=== PATIENT | female | born 1940 | race Caucasian/White ===

== ENCOUNTER 2019-02-06 15:32 | Emergency (ER) | payer MEDICARE, OTHER ==
[~2019-02-06] VITALS: Wt 66.8 kg
--- NOTE | 2019-02-06 22:19 | ERD ---
ER Documentation Chief Complaint Chief Complaint BILATERAL LEG SWELLING X 1 WEEK. HPI 78-year-old female presents to the emergency room complaining of bilateral lower extremity swelling for proximately 1 week. She has a remote history of this in the past but no history of heart failure. No chest pain or shortness of breath or dyspnea on exertion. No history of renal failure. Patient does not currently take a diuretic. She denies any calf swelling or pain, unilateral swelling or history of DVT. ROS All systems reviewed and are negative except as per history of present illness. PMhx/Soc Hx Cardiac Disorders: Yes (htn, ) Hx Psychiatric Problems: No Hx Miscellaneous Medical Probl: Yes (diabetes) Hx Alcohol Use: No Hx Substance Use: No Hx Tobacco Use: No Smoking Status: Never smoker FmHx Family History: No diabetes Physical Exam Vitals Vital Signs Date Temp Pulse Resp B/P (MAP) Pulse Ox O2 O2 Flow FiO2 Time Delivery Rate 02/06/19 97.3 88 20 145/75 100 Room Air 21:59 (98) 02/06/19 97.3 83 20 151/69 96 15:37 (96) Physical Exam General: Well developed, well nourished, no acute distress Head: Normocephalic, atraumatic. Eyes: Pupils equally reactive, EOM intact ENT: Moist mucous membranes Neck: Supple, no lymphadenopathy Respiratory: Lungs clear bilaterally, no distress Cardiovascular: RRR, no murmurs, rubs, or gallops Abdominal: Soft, non-tender, non-distended, no peritoneal signs : Deferred MSK: Pitting bilateral lower extremity edema, no unilateral swelling, 5/5 strength Neurologic: Alert and oriented, moving all extremities, normal speech, no focal weakness, no cerebellar signs Skin: No rash Psych: Normal mood Result Diagram: 02/06/19200802/06/192008 Results 24 hrs Laboratory Tests Test 02/06/19 20:09 White Blood Count 8.7 10^3/ul Red Blood Count 4.10 10^6/ul Hemoglobin 12.2 g/dl Hematocrit 35.9 % Mean Corpuscular Volume 87.6 fl Mean Corpuscular Hemoglobin 29.8 pg Mean Corpuscular Hemoglobin Concent 34.0 g/dl Red Cell Distribution Width 12.9 % Platelet Count 355 10^3/UL Mean Platelet Volume 9.8 fl Immature Granulocytes % 0.200 % Neutrophils % 45.4 % Lymphocytes % 44.6 % Monocytes % 6.5 % Eosinophils % 2.7 % Basophils % 0.6 % Nucleated Red Blood Cells % 0.0 /100WBC Immature Granulocytes # 0.020 10^3/ul Neutrophils # 3.9 10^3/ul Lymphocytes # 3.9 10^3/ul Monocytes # 0.6 10^3/ul Eosinophils # 0.2 10^3/ul Basophils # 0.1 10^3/ul Nucleated Red Blood Cells # 0.0 10^3/ul Sodium Level 143 mmol/L Potassium Level 3.9 mmol/L Chloride Level 105 mmol/L Carbon Dioxide Level 28 mmol/L Anion Gap 10 Blood Urea Nitrogen 14 mg/dl Creatinine 0.56 mg/dl Est Glomerular Filtrat Rate mL/min mL/min Glucose Level 130 mg/dl Calcium Level 9.4 mg/dl Total Bilirubin 0.4 mg/dl Direct Bilirubin 0.00 mg/dl Indirect Bilirubin 0.4 mg/dl Aspartate Amino Transf (AST/SGOT) 28 IU/L Alanine Aminotransferase (ALT/SGPT) 40 IU/L Alkaline Phosphatase 91 IU/L Total Protein 7.8 g/dl Albumin 4.3 g/dl Globulin 3.50 g/dl Albumin/Globulin Ratio 1.22 Current Medications Medications Dose Sig/Gerry Start Time Status Last (Trade) Ordered Route PRN Stop Time Admin Dose Reason Admin Furosemide 40 mg ONCE ONCE 02/06/19 UNV (Lasix) IV 22:30 02/06/19 22:31 Procedures/MDM Bilateral lower extremity duplex no evidence of DVT LAB INTERPRETATION: I reviewed the laboratory testing and it shows no acute process MEDICAL DECISION MAKING: Peripheral edema is most likely secondary to venous insufficiency. No signs or symptoms concerning for DVT, renal failure heart failure liver failure. Basic blood work and ultrasound would be reasonable. Reassurance provided. Elevation of the legs, compression stockings were discussed with the family members. ER COURSE: * Laboratory testing and diagnostic imaging is unrevealing. Single dose of Lasix provided. The patient can be safely discharged with close primary care follow-up. Return precautions were discussed and understood. CONSULTATION: None DISPOSITION PLAN: The patient does not have an identifiable emergent medical condition that warrants inpatient hospitalization at this time. The patient is deemed safe for discharge with outpatient follow-up. We discussed follow up with the patient's primary care doctor within 24 to 48 hours as needed. We also discussed return to the emergency room for worsening symptoms or worsening condition. Outpatient referral: None required Discharge Medications: None required Departure Diagnosis: Primary Impression: Peripheral edema Condition: Stable Patient Instructions: Peripheral Edema, Bilateral [facility] Usted se banuelos hecho un examen mdico de control que le indica que no est en polly condicin que requiera tratamiento urgente en el Departamento de Emergencia. Un estudio ms profundo y el tratamiento de brooks condicin pueden esperar sin ningn riesgo hasta que usted sea atendida/o en el consultorio de brooks mdico o polly clnica. Es responsabilidad suya arreglar polly reyna para el seguimiento del murtaza. MANEJO DE CONDICIONES NO URGENTES EN EL FUTURO 1) Si usted tiene un mdico de atencin primaria: Usted debera llamar a brooks mdico de atencin primaria antes de venir al departamento de emergencia. Despus de las horas de consultorio, brooks doctor o brooks asociado/a est disponible por telfono. El mdico o enfermero de mark en el servicio telefnico puede asesorarle por ronny medio para atender el problema, o murtaza contrario se puede programar polly reyna. 2) Si usted no tiene un mdico de atencin primaria: Llame al mdico o clnica de referencia que aparece abajo arthur las horas de consultorio para hacer polly reyna para que le vean. CLINICAS: [facility] [phone] [address] [facility] [phone] [facility] [phone] [address] [facility]. [facility] [phone] [address] [facility]. [facility] [phone] [address] [facility]. [phone] [address] [facility] () [place] se banuelos hecho un examen mdico de control que le indica que no est en polly condicin que requiera tratamiento urgente en el Departamento de Emergencia. Un estudio ms profundo y el tratamiento de brooks condicin pueden esperar sin ningn riesgo hasta que usted sea atendida/o en el consultorio de brooks mdico o polly clnica. Es responsabilidad suya arreglar polly reyna para el seguimiento del murtaza. MANEJO DE CONDICIONES NO URGENTES EN EL FUTURO 1) Si usted tiene un mdico de atencin primaria: Usted debera llamar a brooks mdico de atencin primaria antes de venir al departamento de emergencia. Despus de las horas de consultorio, brooks doctor o brooks asociado/a est disponible por telfono. El mdico o enfermero de mark en el servicio telefnico puede asesorarle por ronny medio para atender el problema, o murtaza contrario se puede programar polly reyna. 2) Si usted no tiene un mdico de atencin primaria: Llame al mdico o condado institucions de referencia que aparece abajo arthur las horas de consultorio para hacer polly reyna para que le vean. SI USTED NO PUEDE PAGAR PARA LUZ ELENA UN MEDICO puede ir a: [facility] [id number] [place] [address] [facility] [address] [place] [address] [facility] [address] [place] [address] [facility] [facility] [address] [place] [address] [facility] Hours: Mon-Fri 9:00 AM - 5:00 PM Additional Instructions: Llame al doctor nombrado abajo (Referral Sources) MAANA y amilcar polly REYNA PARA DENTRO DE POLLY SEMANA. Dgale a la secretaria que nosotros le instruimos hacer esta reyna.Avise o llame si brooks condicin se empeora antes de la reyna. TOBIAS HELTON MD February 06, 2019 22:19
[2019-02-06] MEDS ORDERED: FUROSEMIDE 40 MG INJ ONE (22:23)
[2019-02-06] MEDS ORDERED: FUROSEMIDE 40 MG INJ IV ONE (22:30)
[2019-02-06 22:35] VITALS: BP 144/75; PULSE 79; RESP 20
== END 2019-02-06 22:36 | disposition home or self-care (01) ==
LOC: E/R 15:32
DX: R60.9 Edema, unspecified (principal); E11.9 Type 2 diabetes mellitus without complications; I10 Essential (primary) hypertension
CPT/HCPCS: 36415; 80053; 85025; 93970; 96374; 99285; J1940